=== PATIENT | male | born 1960 | race Asian ===

== ENCOUNTER 2016-06-21 10:03 | Emergency (ER) | payer MEDICARE ==
[2016-06-21] MEDS ORDERED: METHYLPRED SOD SUCCINATE 125 MG VIAL ONE (10:29)
[2016-06-21] MEDS ORDERED: KETOROLAC TROMETHAMINE 30 MG/ML 1 ML VIAL ONE (10:29)
[2016-06-21] MEDS ORDERED: METHOCARBAMOL 750 MG TABLET ONE (10:29)
--- NOTE | 2016-06-21 11:14 | CT ---
ABD/PELVIS W/O CON: 06/21/2016 10:29 AM INDICATION: Increasing right-sided flank/back pain.. COMPARISON: Abdominal ultrasound 05/28/2012 TECHNIQUE: Contiguous 3 mm transaxial images from a [employer] [address] scanner were obtained from the lung bases through the pubic symphysis without oral or intravenous contrast. Multiplanar images were created at the CT scanner. CT DI: 29.6 DLP: 1565.8 FINDINGS: Lung base: No abnormality is seen at the lung bases. There is no pericardial effusion. This examination is limited for the evaluation of solid organs and vascular structures due to the lack of intravenous contrast which is standard for urinary calculus assessment CT. Liver: Normal. Gallbladder: Multiple small gallstones are present throughout the gallbladder. Spleen: Normal. Pancreas: Normal. Adrenal Glands: Normal. Right kidney & ureter: - Calculi - No . - Ureter Calculi - No. - Obstruction / hydronephrosis - No Left kidney & ureter: - Calculi - No . - Ureter Calculi- No . - Obstruction / hydronephrosis - No The unopacified stomach and bowel is within normal limits. Diverticulosis without diverticulitis or abscess formation. No lymphadenopathy is seen in the abdomen or pelvis No free fluid in the abdomen or pelvis. Urinary bladder: -Bladder Calculi- No . - Bladder is distended adequately. - Wall is thin. Bone windows- No lytic or sclerotic lesions. Multilevel degenerative changes of the spine. IMPRESSION: 1. No urinary tract calculi. 2. Non-contrast evaluation of the abdomen and pelvis is otherwise notable for cholelithiasis, which has progressed from prior study. No CT findings of acute cholecystitis are noted. Findings were called to Dr. Hearn at approximately 1109 hours on 06/21/2016.
== END 2016-06-21 11:37 | disposition home or self-care (01) ==
LOC: ED 10:03
DX: M54.31 Sciatica, right side (principal); I10 Essential (primary) hypertension
CPT/HCPCS: 74176; 99283 ×2; 96372; A9270; J2930; J1885